=== PATIENT | female | born 1960 | race Caucasian/White ===

== ENCOUNTER 2018-06-12 07:55 | Day surgery (SDC) | payer OTHER ==
[2018-06-12] MEDS ORDERED: LIDOCAINE 4% SOLUTION 50 ML BTL (09:54)
[2018-06-12] MEDS ORDERED: MIDAZOLAM 1 MG/ML 2 ML INJ ×2 (10:29)
[2018-06-12] MEDS ORDERED: FENTAnyl 50 MCG/ML VIAL (10:30)
== END 2018-06-12 11:08 | disposition home or self-care (01) ==
LOC: GIL 07:55
DX: R12 Heartburn (principal); K29.00 Acute gastritis without bleeding
CPT/HCPCS: 43239; 88305; 88312

== ENCOUNTER 2018-08-20 22:15 | Emergency (ER) | payer OTHER ==
[2018-08-21] MEDS: TETRACAINE 0.5% 4 ML OPH LEFT EYE (01:40)
[2018-08-21] MEDS: FLUORESCEIN STRIP LEFT EYE (02:06)
== END 2018-08-21 02:23 | disposition home or self-care (01) ==
LOC: FTE 22:15
DX: T49.5X1A Poisoning by ophthalmological drugs and preparations, accidental (unintentional), initial encounter (principal); I10 Essential (primary) hypertension
CPT/HCPCS: 99283; Z7502

== ENCOUNTER 2018-09-23 09:10 | Day surgery (SDC) | payer OTHER ==
[2018-09-23] MEDS ORDERED: LIDOCAINE 2% (SDV) 5 ML INJ (10:03)
[2018-09-23] MEDS ORDERED: PROPOFOL 60 ML (10:03)
== END 2018-09-23 10:49 | disposition home or self-care (01) ==
LOC: GIL 09:10
DX: Z12.11 Encounter for screening for malignant neoplasm of colon (principal); D12.3 Benign neoplasm of transverse colon; K21.9 Gastro-esophageal reflux disease without esophagitis
CPT/HCPCS: 45385; 88305